=== PATIENT | male | born 1980 | race Asian ===

== ENCOUNTER 2019-08-14 09:56 | Emergency (ER) | payer OTHER ==
[2019-08-14] MEDS ORDERED: KETOROLAC TROMETHAMINE INJ 30 MG/ML VIAL IM ONE (10:03)
[2019-08-14] MEDS ORDERED: cefTRIAXone SODIUM 1 GM VIAL IM ONE (10:03)
--- NOTE | 2019-08-14 10:06 | ED.PDOC ---
History of Present Illness - General Chief Complaint: Upper Extremity Injury Time Seen by Provider: 08/14/19 10:00 - History of Present Illness Initial Comments: c/o having injury to the R little finger finger , having some bleeding and pain Occurred: just prior to arrival Method of Injury: other Improving Factors: nothing Worsening Factors: nothing, movement Allergies/Adverse Reactions: Allergies NO KNOWN ALLERGY Allergy (Verified 08/14/19 10:01) Home Medications: Ambulatory Orders Sulfamethoxazole-Trimethoprim [Bactrim Ds 800-160 mg] 1 tab PO BID #20 tab 08/14/19 Review of Systems - Review of Systems Constitutional: States: no symptoms reported EENTM: States: no symptoms reported Respiratory: States: no symptoms reported Cardiology: States: no symptoms reported Gastrointestinal/Abdominal: States: no symptoms reported Genitourinary: States: no symptoms reported Musculoskeletal: States: no symptoms reported Skin: States: no symptoms reported Neurological: States: no symptoms reported Endocrine: States: no symptoms reported Hematologic/Lymphatic: States: no symptoms reported All other Systems: Reviewed and Negative Family Medical History - Family History Mother Family History: Unknown Physical Exam - Physical Exam General Appearance: Alert Eyes, Ears, Nose, Throat Exam: PERRL/EOMI Neck: non-tender Cardiovascular/Respiratory: regular rate, rhythm, no M/R/G Shoulder Exam: normal inspection Elbow/Forearm Exam: normal inspection Wrist Exam: normal inspection Hand Exam: normal inspection, laceration - partial amputation to the R little finger Mental Status: alert, oriented x 3 Progress - Progress Progress: 08/14/19 10:40 Case d/w Dr Lin kim , wants to follow up with pt in his clinic next week Departure - Departure Clinical Impression: 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 Copy, Patient Portal Self Enrollment Instructions: DI for Finger Fracture, DI for Hand Injury Diet: resume usual diet Activity: increase activity as tolerated Referrals: FELIX WALDRON [Referring] - 1-2 Weeks Prescriptions: Sulfamethoxazole-Trimethoprim [Bactrim Ds 800-160 mg] 1 tab PO BID #20 tab Home Medications: Ambulatory Orders Sulfamethoxazole-Trimethoprim [Bactrim Ds 800-160 mg] 1 tab PO BID #20 tab 08/14/19 Comments: Follow up with PCP in 1-2 days
[2019-08-14] MEDS ORDERED: TETANUS,DIPHTHERIA,PERTUSSIS 1 EA SYG IM ONE (10:20)
[2019-08-14] MEDS ORDERED: MORPHINE SULFATE INJ 10 MG/ML VIAL IM ONE (10:20)
[2019-08-14] MEDS ORDERED: LIDOCAINE 1% 10 ML VIAL INJ ONE (10:25)
[2019-08-14 10:36] VITALS: BP 103/67
[2019-08-14 13:15] VITALS: TEMP 96.6; O2SAT 95
== END 2019-08-14 11:21 | disposition home or self-care (01) ==
LOC: ER 09:56
DX: S68.626A Partial traumatic transphalangeal amputation of right little finger, initial encounter (principal); W45.8XXA Other foreign body or object entering through skin, initial encounter; Y93.89 Activity, other specified; Y92.9 Unspecified place or not applicable
CPT/HCPCS: 90471; 90715; J0696; J2270